=== PATIENT | female | born 1955 | race Caucasian/White ===

== ENCOUNTER 2021-04-26 08:10 | Emergency (ER) | payer OTHER ==
[~2021-04-26] VITALS: Ht 172.7 cm; Wt 77.1 kg
[2021-04-26] MEDS ORDERED: LISINOPRIL10 MG PO (08:16)
[2021-04-26] MEDS ORDERED: TOPROL XL25 MG PO (08:16)
[2021-04-26 09:10] LABS: ABSOLUTE LYMPHOCYTES 1.7 thou/uL (0.8-5.3); ABSOLUTE MONOCYTES 0.5 thou/uL (0.0-1.2); ABSOLUTE NEUTROPHILS 4.5 thou/uL (1.6-8.1); BASOPHILS 0.6 %; EOSINOPHILS 0.6 %; HEMATOCRIT 34.7 % (37.0-47.0); HEMOGLOBIN 11.5 gm/dL (12.0-15.0); LYMPHOCYTES 25.3 %; MCH 29.1 pg (26.0-34.0); MCHC 33.1 g/dL (28.0-37.0); MCV 87.8 fL (80.0-100.0); MONOCYTES 7.8 %; NUCLEATED RBCS 0 /100WBC; PLATELET COUNT* 347 thou/uL (150-400); POLYS 65.7 %; RBC 3.95 mil/uL (4.20-5.00); WBC 6.8 thou/uL (4.0-11.0)
[2021-04-26 09:53] LABS: CALCIUM 8.2 mg/dL (8.5-10.1); CREATININE 0.8 mg/dL (0.6-1.3); POTASSIUM 3.8 mmol/L (3.5-5.1)
[2021-04-26 09:58] LABS: TOTAL BILIRUBIN 0.4 mg/dL (<0.1-1.0); TOTAL PROTEIN 6.5 g/dL (6.4-8.2)
[2021-04-26 10:36] VITALS: BP 141/78
--- NOTE | 2021-04-26 11:37 | EKG ---
[place] [address] ELECTROCARDIOGRAM REPORT Name: BAYRON MIRANDA Room: [facility]#: [id number] Admission: 04/26/21 Attend Phys: Discharge: 04/26/21 Date of : 53 Date of Service: 04/26/21816 Report #: [id number] THIS REPORT FOR: //name// [facility] [place] ED Test Date: 2021-04-26 Test Time: 08:17:24 Pat Name: BAYRON MIRANDA Department: Room: Gender: F [employer] Assurance/R&D Lab Technician: TDS : 1955 Requested By: José Miguel Gallegos Order Number: [id number] MD: Alexandre Nicole Measurements Intervals [place] Rate: 69 P: 40 CT: 164 QRS: -45 QRSD: 96 T: -31 QT: 403 QTc: 432 Interpretive Statements Sinus rhythm Left anterior fascicular block Nonspecific T abnormalities, diffuse leads No previous ECG available for comparison Electronically Signed On 04-26-2021 11:37:00 RADIO REPORTER by Alexandre Nicole [email or web address] <ELECTRONICALLY SIGNED> By: Alexandre Nicole MD, [facility] 04/26/21 1137 6 6 Alexandre Nicole MD, [facility] /EPI
== END 2021-04-26 10:36 | disposition home or self-care (01) ==
LOC: M.ERS 08:10
PROVIDERS: Family Medicine
DX: I47.1 Supraventricular tachycardia (principal); I10 Essential (primary) hypertension; Z79.899 Other long term (current) drug therapy